=== PATIENT | female | born 1960 | race Caucasian/White ===

== ENCOUNTER 2018-04-27 07:30 | Outpatient (RCR) | payer OTHER, SELFPAY ==
--- NOTE | 2018-04-02 10:40 | PTTR_ITS ---
DATE: 04/02/18 SUBJECTIVE: Brandy states she is nearly 50% improved since starting P.T. Really finds the dry needling to be effective. OBJECTIVE: Today's session consisted of integrated dry needling. She did give verbal consent for the dry needling today. Homeostatic points used: bilateral greater occipital 1, left spinal accessory 1 with muscle twitch achieved. This was applied in prone and in supine positions. Dorsal scapula 1 left, supra scapular 2 left, and greater auricular bilaterally 1/2. Manual therapy: ([id number]). Cervical mobs, up slips, down slopes, lateral glides and MET into rotation left with manual distraction achieving 75 with end range tightness reported. Still no radiculopathy noted. Direct treatment time: 15 min. Total treatment time: 30 min. Plan: Continue as indicated above. MM/gc
--- NOTE | 2018-04-02 16:19 | PTTR_ITS ---
DATE: 04/02/18 CO TREATMENT with supervising Angie, Naif Ramirez. See his note for details OBJECTIVE: Therapeutic procedures ([id number]). Was educated in Phase 1 and 2 cervical stabilization. Specific focus was on maintaining scapular retraction with slight cervical retraction with each of these exercises. Was instructed to use a 1 to 2# weight for weight resisted exercises. Was provided with yellow t-band for t-band resisted external rotation. Verbal and tactile cues were provided throughout today's session for proper positioning and isolation of specific muscles. * x Electrical Stim Unattended - [id number]: applied to the posterior c- spine and upper back soft tissue x15 min. while seated. Direct treatment time: 20 min. Total treatment time: 35 min. SG/gc
--- NOTE | 2018-04-09 13:17 | PTTR_ITS ---
DATE: 04/09/18 SUBJECTIVE: Brandy arrives today indicating she is doing very well. Feels as though her neck is definitely looser and less uncomfortable than it had been prior to starting P.T. Declines the need for modalities. OBJECTIVE: Manual therapy: ([id number]). Cervical mobs were applied consisting of up slips, down slopes, lateral glides as well as METs into rotation. Manual distraction was performed pre and post mobilizations. Did review her HEP consisting of Phase I and II cervical stabilization. Appears to have a very good understanding of each of these exercises, and states that she has been doing them regularly. Direct treatment time: 20 minutes Total treatment time: 20 minutes SG/gc
--- NOTE | 2018-04-20 07:30 | PTTR_ITS ---
DATE: 04/20/18 SUBJECTIVE: Brandy reports that she is having more L sided upper trap and lower cervical spine pain. Admits she was unable to attend PT last week and thinks this may have been why. She has been noticing better function and less pain with dry needling, soft tissue mobilization and cervical mobilization. Reports compliancy with her cervical stabilization, home exercise program. Seen in PT for integrated dry needling as loco expense. She gave verbally consent to receive this today. Homeostatic points used today bilateral greater occipital 1, bilateral greater auricular 1/2, L spinal accessory with muscle twitch elicited, L suprascapular 2, paravertebral points used C4-C7 with 1 bilaterally. Symptomatic points used today were 2 in upper trap muscle belly with muscle fasciculations elicited. . Manual therapy: ([id number]). Cervical mobilizations, upslips, down slopes, lateral glides, hold/relax mobilization into L rotation. AA achieving 75 degrees. Patient then received soft tissue mobilization performed by Demi Mcdonald PTA (see her note) Direct treatment time: 30 mins Total treatment time: 30 mins P: Resume formal PT and work on once a week frequency. MM/dl
--- NOTE | 2018-04-20 08:00 | PTTR_ITS ---
DATE: 04/20/18 Co-treat with supervising PT, Ladarius Ramirez. OBJECTIVE: Manual therapy: ([id number]). Mobilization of cervical soft tissue while in supine position consisting of TPM to upper traps, lev scap and scalenes, with focus on the left. Utilized tendon massage along the cervical vertebrae, upper thoracic vertebrae and medial scap border. Performed OA release, PRT to above indicated muscles and fascial stretching throughout the entire posterior left cervical region. * x Electrical Stim Unattended - [id number]: Ended session with IFC and cryotherapy x 15 minutes at no charge while in seated position. Direct treatment time: 20 minutes Total treatment time: 35 minutes
--- NOTE | 2018-04-27 07:30 | PTTR_ITS ---
DATE: 04/27/18 SUBJECTIVE: Brandy states she had some difficulty over the weekend when she was kayaking with increased L neck pain. Admits that therapy has really helped her sleep through the night better and she is having less pain when she wakes up in the morning. OBJECTIVE: Seen in PT for IDN loco basis. Patient did give verbal consent to receive dry needling today. Homeostatic points used: Bilateral greater occipital 1, L spinal accessory 1 with muscle twitch elicited, greater auricular bilateral 1/2, dorsal scapular L 1, paravertebrals C4-C7 with 2. Manual therapy: (45062a3). Cervical mobilizations, up slips, down slopes, lateral glides, MET's into L rotation achieving 75 degrees compared to 80 to the R. Did perform some L upper trap stretching. Direct treatment time: 30 mins Total treatment time: 30 mins with continued with Laura Thakur PTA (see her note) A: ROM improving with L rotation. P: Continue as above. Will have her take the next couple weeks off as she will be on vacation. Will follow up with her after that and progress to Phase 3 cervical stab MM/dl
--- NOTE | 2018-04-27 11:06 | PTTR_ITS ---
DATE: 04/27/18 Co treatment with TORRI KanT: OBJECTIVE: Manual therapy: ([id number]). STM t/o cervical region with focus on left paraspinals, upper trap, scalenes, using PRT's. CFM over suboccipitals, and attachments of upper trap. Declined MHP post session. Direct treatment time: 20 min Total treatment time: 20 min
== END 2018-05-01 23:59 | disposition home or self-care (01) ==
LOC: PT 07:30
PROVIDERS: PCP Family Medicine; Referring Provider Family Medicine; Visit Provider Family Medicine
DX: M54.2 Cervicalgia (principal); M25.512 Pain in left shoulder; M47.22 Other spondylosis with radiculopathy, cervical region
CPT/HCPCS: 97014; 97110; 97140

== ENCOUNTER 2018-06-12 06:15 | Day surgery (SDC) | payer OTHER, SELFPAY ==
[2018-06-12 06:27] VITALS: BP 124/88; PULSE 66; RESP 18; TEMP 37.1; O2SAT 95
[2018-06-12] MEDS: Lactated Ringers 1,000 ML 80 ML IV (06:50)
[2018-06-12] MEDS: Bupivacaine 0.5% Pres-Free 30 ML VIAL (07:48)
[2018-06-12] MEDS: Dexamethasone 4 MG/ML VIAL (08:10)
--- NOTE | 2018-06-12 08:13 | W.PM.DSUDISC ---
Discharge Plan Discharge Details Reason For Visit: HAMMER TOES 2 & 5 (L) Attending Provider: Gabriel Bustos Primary Care Provider: Erin Morales Home Meds and New Rx's Prescriptions: No Action aspirin 81 MG tablet,chewable 81 mg PO DAILY RF: 0 wkbbfcdcflap-buvb-cbqhp acid [Centrum Women] 1 EACH tablet 1 ea PO DAILY RF: 0 sumatriptan succinate [Imitrex] 50 MG tablet 1 tab PO PRN PRNQty: 10 RF: 12 acyclovir 400 MG tablet 400 mg PO BID PRN Qty: 10 RF: 4 meloxicam [Mobic] 7.5 MG tablet 7.5 mg PO DAILY Qty: 90 RF: 3 conj estrog-medroxyprogest iva [Prempro] 1 EACH tablet 1 tab-cap PO DAILY Qty: 90 RF: 3 latanoprost [Xalatan] 2.5 ML drops 1 drp ophthalmic (eye) DAILY RF: 0
--- NOTE | 2018-06-12 08:20 | PDOC.DSDIS_ITS ---
Discharge Plan Discharge Details Reason For Visit: HAMMER TOES 2 & 5 (L) Attending Provider: Gabriel Bustos Primary Care Provider: Erin Morales Home Meds and New Rx's Prescriptions: No Action aspirin 81 MG tablet,chewable 81 mg PO DAILY RF: 0 nypbghhpftlh-pdgn-ndrri acid [Centrum Women] 1 EACH tablet 1 ea PO DAILY RF: 0 sumatriptan succinate [Imitrex] 50 MG tablet 1 tab PO PRN PRNQty: 10 RF: 12 acyclovir 400 MG tablet 400 mg PO BID PRN Qty: 10 RF: 4 meloxicam [Mobic] 7.5 MG tablet 7.5 mg PO DAILY Qty: 90 RF: 3 conj estrog-medroxyprogest iva [Prempro] 1 EACH tablet 1 tab-cap PO DAILY Qty: 90 RF: 3 latanoprost [Xalatan] 2.5 ML drops 1 drp ophthalmic (eye) DAILY RF: 0
[2018-06-12 08:50] VITALS: BP 127/81; PULSE 66; RESP 16; TEMP 36.6; O2SAT 98
--- NOTE | 2018-06-12 09:43 | ROE_ITS ---
DATE OF PROCEDURE: June 12, 2018 PREOPERATIVE DIAGNOSIS: Hammertoe deformities left second and fifth toes. POSTOPERATIVE DIAGNOSIS: Same. PROCEDURE: 1. Arthroplasty with .062 K-wire fixation left second toe. 2. Flexor tenotomy of the left fifth toe. SURGEON: Gabriel Bustos D.P.M. ANESTHESIA: Monitored Anesthesia Care; local block of the second and fifth digits utilizing a total of 10 cc's of a 60% 1% Lidocaine plain and 40%0.25% Marcaine plain mixture. ANESTHESIA PROVIDER: Atul Hahn CRNA OPERATIVE INDICATIONS: 58-year-old female with increasing pain associated with hammertoe deformities affecting the left second and fifth toes, interfering with comfortable shoe gear and ambulation. Sh e understands the risks and complications of surgery pertaining to pain, scarring, infection, stiffne ss of the joints, and recurrence of contracture potentially requiring revisional procedures. Informe d consent has been obtained. No promises made to final outcome of surgery. REPORT OF OPERATION: Brandy was brought to the operative suite and placed in the supine position whe re the left foot is prepped and draped in the usual sterile podiatric fashion. A time-out was perfor med in the normal hospital protocol. Attention was now directed to the left foot, which was exsanguinated and a well-padded ankle tourniqu et inflated 250 mmHg. Attention was directed to the second two where two converging semi-elliptical incisions were placed dorsally at the PIPJ level. A skin wedge was removed. Soft tissue mobilizatio n was performed. A transverse tenotomy capsulotomy was performed at the PIPJ level with a #15 scalpe l. Medial and lateral collaterals were released. The head of the proximal phalanx was delivered int o the wound and resected at its surgical neck. All rough and bony edges were rasped smooth. The sec ond toe was noted to be in a relaxed position. The toe was fixated in retrograde fashion with a .062 K-wire. The wound was copiously irrigated. The extensor tendon was shortened and repaired end-to-e nd with two simple interrupted sutures of #3-0 Vicryl. The skin was then coapted with a simple inter rupted suture of #4-0 nylon. Attention was now directed to the fifth toe. Flexible contracture was appreciated, creating a digiti quinti varus deformity. Utilizing a #15 scalpel an incision was made at the plantar slightly latera l aspect of the toe at the flexor set level. The blade was advanced. The flexor tendon was identifi ed and subsequently severed. The fifth toe resumed a relaxed rectus position. Irrigation was perfor med. The incision was closed with #4-0 nylon. Xeroform gauze fluff compression dressings were appli ed and the tourniquet was released at 17 minutes with vascularity returning to all toes. Brandy left the OR with vital signs stable. Sharp and sponge counts were correct. Vascular status was intact. She will be followed by me in the office next week. cc: Erin Morales M.D.
== END 2018-06-12 09:15 | disposition home or self-care (01) ==
PROVIDERS: PCP Family Medicine; Visit Provider Podiatrist
PROC: (CPT 28285; principal; 2018-06-12 07:30)
DX: M20.42 Other hammer toe(s) (acquired), left foot (principal)
CPT/HCPCS: 28285 ×2; J0690; J1100

== ENCOUNTER 2019-04-27 01:28 | Outpatient (CLI) | payer OTHER, SELFPAY ==
--- NOTE | 2019-05-17 10:59 | ZIOP_ITS ---
DATE OF DICTATION: May 17, 2019 STUDY INDICATION: Paroxysmal atrial fibrillation. REQUESTING PROVIDER: Mini Hung M.D. FINDINGS: The patient was monitored for 12 days and 13 hours. The patient was in atrial fibrillation throughout. Average heart rate in atrial fibrillation 97 bpm, range 50 to 255 bpm. There was rare ventricular ectopy. There were no pauses greater than 3 seconds. There was no high-degree heart block. There were 11 patient events. All events correlated with atrial fibrillation with heart rates betwee n 70 and 182 bpm. FINAL INTERPRETATION: Atrial fibrillation with overall controlled ventricular response, symptomatic.
== END 2019-04-27 01:48 ==
PROVIDERS: PCP Family Medicine; Visit Provider Nurse Practitioner Family
DX: I48.0 Paroxysmal atrial fibrillation (principal)
CPT/HCPCS: 0296T

== ENCOUNTER 2019-04-28 02:42 | Outpatient (CLI) | payer OTHER, SELFPAY ==
[2019-04-28 11:52] LABS: Hemoglobin A1C 5.5 % (4.5-6.2)
[2019-04-28 12:30] LABS: ALT 36 U/L (14-59); AST 25 U/L (15-37); Albumin 3.6 g/dL (3.4-5.0); Alkaline Phosphatase 65 U/L (46-116); BUN 12 mg/dL (7-18); Bilirubin, Total 0.3 mg/dL (0.2-1.0); CREATININE 0.67 mg/dL (0.55-1.02); Calculated LDL 92 mg/dL; Chloride 104 mmol/L (98-107); Cholesterol 163 mg/dL (50-200); Glucose 91 mg/dL (70-100); HDL Cholesterol 57 mg/dL (40-60); Potassium 4.6 mmol/L (3.5-5.1); Sodium 141 mmol/L (136-145); TSH 1.19 uIU/mL (0.36-3.74); Total Protein 7.4 g/dL (6.4-8.2); Triglyceride 71 mg/dL (30-150)
[2019-04-28 12:52] LABS: FREE T4 1.01 ng/dL (0.76-1.46)
== END 2019-04-28 03:02 ==
PROVIDERS: PCP Family Medicine; Visit Provider Nurse Practitioner Family
DX: I48.0 Paroxysmal atrial fibrillation (principal)
CPT/HCPCS: 36415; 80053; 80061; 83721; 83036; 84439; 84443

== ENCOUNTER 2019-06-24 09:04 | Day surgery (SDC) | payer OTHER, SELFPAY ==
[2019-06-24 09:23] VITALS: BP 133/80; PULSE 89; RESP 14; TEMP 36.3; O2SAT 99
[2019-06-24] MEDS: Lactated Ringers 1,000 ML 80 ML IV (09:33)
--- NOTE | 2019-06-24 10:50 | W.COLOREPORT ---
Date of service: 06/24/19 Time of Service: 10:50 Colonoscopy Report Date of procedure: 06/24/19 Pre-op diagnosis general: Screening Post-op diagnosis procedure note: other (Incomplete) Procedure: Sigmoidoscopy Surgeon: Erika Arce Anesthesia proc note operative: GETA Estimated blood loss (mL): 0 Pathology: none sent Procedure Description: After informed consent was obtained the patient was taken to the procedure room and placed in a left decubitous position. Monitors were applied and a time out was done. The patients name, date of , procedure, allergies to medications and metal in their body was reviewed. The patient was then sedated. Once sedated and comfortable a rectal exam was done. External exam was normal. Internal exam revealed a normal sphincter tone and no palpable masses. The scope was then introduced and retrofelexed. No internal hemorrhoids were identified. The scope was then advanced to the 30cm. Could not complete turn. Mult positions were tried- but could not pass scope. Patient will be sent for barium enema. The patient tolerated the procedure well and there were no immediate complications.
--- NOTE | 2019-06-24 11:15 | W.PM.DSUDISC ---
Discharge Plan Disposition Patient Disposition: HOME Condition: Good Discharge Details Reason For Visit: colon scope Attending Provider: Erika Arce Primary Care Provider: Erin Morales Home Meds and New Rx's Prescriptions: Continued aspirin 81 MG tablet,chewable 81 mg PO DAILY RF: 0 Centrum Women 1 EACH tablet 1 ea PO DAILY RF: 0 sumatriptan succinate [Imitrex] 50 MG tablet 1 tab PO PRN PRNQty: 10 RF: 12 acyclovir 400 MG tablet 400 mg PO BID PRN Qty: 10 RF: 4 Prempro 0.625-2.5 mg tablet 1 tab PO DAILY Qty: 90 RF: 3 meloxicam [Mobic] 7.5 mg tablet 7.5 mg PO DAILY Qty: 90 RF: 3 latanoprost [Xalatan] 2.5 ML drops 1 drp ophthalmic (eye) DAILY RF: 0 Discharge Instructions Additional Instructions: Findings:incomplete colon scope. barium enema in am- arrive in radiology: 8:15am Friday for 8:30am procedure clear liquids only today nothing to eat/drink after midnight will call w/ results Please call if you develop: fevers >101.5 Nausea or Vomiting Abdominal pain that is not transient DAY SURGERY UNIT POST COLONOSCOPY INSTRUCTIONS 1. Because there will be medication in your system for the next 24 hours, you may feel a little sleepy. Your coordination will be affected. Therefore: a. Do not drive or operate dangerous equipment for 24 hours. b. Do not drink alcohol beverages for 24 hours (not even beer). c. Plan to go home and rest for the day. 2. Generally there are no restrictions on your activity after a day or so has gone by, but you may feel a bit fatigued for a few days. 3 After you arrive home you may have a light meal and return to a normal diet as you can tolerate it without feeling sick to your stomach. 4. After surgery, you may feel pain or discomfort. This should be only transient, but if it persists please contact your doctor. 5. If there are any questions regarding the findings of your procedure, please feel free to contact your doctor. 6. If you are unable to contact your doctor with a problem, contact the hospital at [phone]. 7. Continue all your regular medications unless directed otherwise. I understand the above instructions and have no questions. Signature of Patient or Responsible Adult Escort Date/Time Name of Responsible Adult Escort Signature of Nurse Date/Time Discharge Orders Discharge Orders: Discharge Order (Routine); Ordered 06/24/19 Ordered By: Erika Arce DS: Diagnosis Discharge Diagnosis (1) Colon cancer screening: Status: Acute
[2019-06-24 11:50] VITALS: BP 132/96; PULSE 80; RESP 16; TEMP 35.7; O2SAT 99
== END 2019-06-24 12:15 | disposition home or self-care (01) ==
PROVIDERS: PCP Family Medicine; Visit Provider Surgery
PROC: 0DJD8ZZ Inspection of Lower Intestinal Tract, Via Natural or Artificial Opening Endoscopic (ICD-10-PCS; CPT 45378; principal; 2019-06-24 10:15)
DX: Z12.11 Encounter for screening for malignant neoplasm of colon (principal); Y66 Nonadministration of surgical and medical care; Z53.09 Procedure and treatment not carried out because of other contraindication
CPT/HCPCS: 45378

== ENCOUNTER 2019-06-25 09:28 | Outpatient (CLI) | payer OTHER, SELFPAY ==
--- NOTE | 2019-06-25 08:30 | DI.RAD_ITS ---
EXAM: RF BARIUM ENEMA CLINICAL HISTORY: incomplete colonoscopy,colon cancer screening,z12.11 COMPARISON: No exams were available for comparison FINDINGS: Barium was introduced in the rectum and flowed to the cecum and into the terminal small bowel. Sigmo id colon is markedly tortuous and portions of the sigmoid are nonvisualized due to the tortuosity wit h multiple overlapping loops of bowel. Remainder of the colon is fairly well visualized. No gross m ucosal lesion or filling defect identified. Mild colonic diverticulosis noted. Unremarkable appeara nce of the terminal ileum. IMPRESSION: Mild colonic diverticulosis. No significant lesion seen. Incomplete evaluation of the sigmoid colon d ue to multiple overlapping loops of bowel. No fluoro time.
== END 2019-06-25 09:48 ==
PROVIDERS: PCP Family Medicine; Visit Provider Surgery
DX: Z12.11 Encounter for screening for malignant neoplasm of colon (principal); K57.30 Diverticulosis of large intestine without perforation or abscess without bleeding; R14.0 Abdominal distension (gaseous)
CPT/HCPCS: 74270

== ENCOUNTER 2019-09-05 13:58 | Emergency (ER) | payer OTHER, SELFPAY ==
[2019-09-05 14:03] VITALS: BP 158/127; PULSE 103; RESP 18; TEMP 36.5; O2SAT 99
--- NOTE | 2019-09-05 14:42 | ED.GENADUL_ITS ---
Discharge Plan Disposition Patient Disposition: HOME Discharge Details Chief Complaint: Chest/Rib Clinical Impression: Injury of trunk, Fall Primary Care Provider: Erin Morales ED Provider: Kris Morris Home Meds and New Rx's Prescriptions: New oxycodone 5 mg capsule 5 mg PO QID PRN (Reason: pain) Qty: 7 RF: 0 No Action aspirin 81 MG tablet,chewable 81 mg PO DAILY RF: 0 Centrum Women 1 EACH tablet 1 ea PO DAILY RF: 0 sumatriptan succinate [Imitrex] 50 MG tablet 1 tab PO PRN PRNQty: 10 RF: 12 acyclovir 400 MG tablet 400 mg PO BID PRN Qty: 10 RF: 4 meloxicam [Mobic] 7.5 mg tablet 7.5 mg PO DAILY Qty: 90 RF: 3 venlafaxine 75 mg tablet extended release 24 hr 75 mg PO DAILY Qty: 90 RF: 4 latanoprost [Xalatan] 2.5 ML drops 1 drp ophthalmic (eye) DAILY RF: 0 Discharge Instructions Instructions: Rib Contusion (ED) Additional Instructions: Your x-rays were negative for acute fracture of the ribs, however often small nondisplaced rib fractures are missed on x-ray. It is very important that you work on deep breathing exercises and avoid laboring your breathing. Should you develop severe shortness of breath, fever or severe pain radiating to your abdomen you need to be reevaluated. Take Tylenol 500 m tabs every 8 hours as needed for pain. You can also take ibuprofen 200 m tabs every 6-8 hours as needed for pain. Referrals: Erin Morales MD [Primary Care Provider] - 2 weeks Medical Decision Making This is a nontoxic-appearing 59-year-old female presenting to the emergency department with localized inferior posterior lateral rib pain status post fall. Hemodynamically stable. Physical exam significant for focal tenderness over the area. No crepitus. No flail chest. X-rays negative for pneumothorax or obvious acute rib fracture. Discussed the nature of her injury and the imp ortance of deep breathing exercises. Will send home with pain medication along with return precautions. HPI General Date/Time Provider Initiated Documentation: 09/05/19 14:15 . HPI Narrative: Patient is a 59-year-old female with no significant past medical history presents to the emergency department with severe left posterior lateral rib pain status post fall. She states that she was walking downstairs and slipped striking her lower back on the bridge of the stair. She has had severe pain since the fall. She denies any shortness of breath, however admits to pain with deep breathing. No abdominal pain. No numbness or tingling radiating down her legs. She takes no blood thinning meds. Related Data Home Medications Medication Instructions Recorded Confirmed latanoprost [Xalatan] 1 drp OPHTHALMIC (EYE) DAILY 05/23/16 09/05/19 aspirin 81 mg PO DAILY tab-cap 01/14/17 09/05/19 Centrum Women 1 ea PO DAILY 01/19/18 09/05/19 acyclovir 400 mg PO BID PRN #10 tab-cap 01/19/18 09/05/19 sumatriptan succinate [Imitrex] 1 tab PO PRN PRN #10 tab-cap 01/19/18 09/05/19 meloxicam 7.5 mg tablet 7.5 mg PO DAILY #90 tab-cap 03/05/19 09/05/19 venlafaxine 75 mg tablet,extended 75 mg PO DAILY #90 tab 07/23/19 09/05/19 release 24 hr oxycodone 5 mg PO QID PRN #7 cap 09/05/19 Previous Rx's Medication Instructions Recorded acyclovir 400 mg PO BID PRN #10 tab-cap 01/19/18 meloxicam 7.5 mg tablet 7.5 mg PO DAILY #90 tab-cap 03/05/19 venlafaxine 75 mg tablet,extended 75 mg PO DAILY #90 tab 07/23/19 release 24 hr oxycodone 5 mg PO QID PRN #7 cap 09/05/19 Allergies Allergy/AdvReac Type Severity Reaction Status Date / Time erythromycin base AdvReac NAUSEA/VOMT Verified 08/13/19 13:42 ING hydrocodone bitartrate AdvReac Itch Verified 08/13/19 13:42 [From Vicodin] General Stated Complaint: Chest/Rib JONATHAN: 4 Review of Systems Constitutional Constitutional: Denies frequent falls and Denies headache(s) ENT Ears, Nose, Mouth, and Throat: Denies headache(s) and Denies neck pain Cardiovascular Cardiovascular: Denies syncope, Denies edema, Denies claudication and Denies dyspnea Respiratory Respiratory: Denies cough, Denies hemoptysis, Reports pain on inspiration, Reports pain with cough and Denies dyspnea Gastrointestinal Gastrointestinal: Denies abdominal pain, Denies nausea and Denies vomiting Musculoskeletal Musculoskeletal: Reports back pain, Denies neck pain and Denies numbness Neurologic Neurologic: Denies syncope, Denies frequent falls, Denies headache(s), Denies numbness and Denies paresthesias [facility] Medical History Atrial fibrillation (Chronic) Was paroxysmal but now in chronic Afib. Not anticoagulated. 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) Followed by [facility] Vasomotor symptoms due to menopause (Chronic) Surgical History Hx of sigmoidoscopy (Acute 06/24/19) S/P appendectomy (Acute ~2004) S/P bunionectomy (Acute) Left great toe S/P cholecystectomy (Acute) S/P hammer toe correction (Acute) Status post bilateral breast reduction (Acute 11/03/17) Status post right hip replacement (Acute 08/10/13) Family History Mother Colon cancer Father Heart disease ICD/PPM Hypertension Myocardial infarction Brother Hyperlipidemia Hypertension Stroke Brother Hyperlipidemia Hypertension Brother Heart disease Substance abuse Daughter Hypertension Daughter No problems noted. Maternal Grandfather Parkinson disease Colon cancer Maternal Grandmother Stroke Paternal Grandfather Heart disease Paternal Grandmother Type 2 diabetes mellitus Social History Smoking/Tobacco Use Status: Never Alcohol Intake: current Alcohol Intake frequency: a few times a month Drug use: Never Substance use type: does not use Details: Jun 20 1 glass of red wine Caregiver/Support person: No Household members: spouse Housing: house Pets and animals: Yes Pets and animals: cat(s) Sexually active: Yes Do you think of yourself as: straight/heterosexual Current gender identity: female and decline to answer What is your relationship status?: How often do you talk on the phone with friends or family?: decline to answer How often do you get together with friends or relatives?: decline to answer How often do you attend restorationist or jehovah's witness services?: decline to answer Do you belong to any clubs or organized social groups?: decline to answer Panel score (0-1 are the most socially isolated patients): 1 What type of physical activity do you participate in: walking, aerobic, resista nce training, other Details: Pilates and yoga Duration: 30-45 minutes/day Frequency: 5-6 times per week Anaya/Pentecostalism: Yarsani Special anaya needs: No Seatbelt use: always Drive intox or ride w/intox batch mixing truck driver: No Do you feel safe at home: Yes Do you feel safe in your relationship?: Yes Female Reproductive History Menstrual Menopause type: natural History History 2 Para 2 Hx # Term Pregnancies Multiple births Hx # Pregnancies Ectopic pregnancies AB induced Hx Number of Living Children 2 AB spontaneous Exam Const General: cooperative, comfortable and in distress mild Orientation: alert, awake and oriented x3 HENMT Head: normal to inspection, no palpable skull fracture, normocephalic and atraumatic General nose exam: external nose normal Face and sinus: normal facial exam Mouth: oral mucosae normal Eyes General: appearance normal, both eyes and all related structures Pupils: PERRL EOM: EOM intact bilaterally Neck Neck: normal visual inspection and full ROM Chest Chest: normal inspection of the chest, localized rib tenderness with anteroposterior compression (Inferior posterior lateral) and tenderness rib (Inferior posterior lateral) Resp Effort & Inspection: normal respiratory effort and able to speak in complete sentences Auscultation: clear to auscultation bilaterally Cardio Palpation: normal PMI Rate: regular rate Rhythm: regular rhythm Pulses: normal peripheral pulses Back/Spine/Pelvis Back: no CVA tenderness Course Vital Signs Vital signs: Vital Signs Temperature 36.5 C 09/05/19 14:03 Pulse 103 H 09/05/19 14:03 Respiratory Rate 18 09/05/19 14:03 Blood Pressure 158/127 H 09/05/19 14:03 Pulse Oximetry 99 09/05/19 14:03 Temperature 36.5 C 09/05/19 14:03 Temperature Source Skin 09/05/19 14:03 Pulse 103 H 09/05/19 14:03 Respiratory Rate 18 09/05/19 14:03 Respiratory Effort Non-Labored 09/05/19 14:09 Respiratory Depth Normal 09/05/19 14:09 Respiratory Pattern Normal 09/05/19 14:09 Blood Pressure 158/127 H 09/05/19 14:03 Blood Pressure Position Sitting 09/05/19 14:03 Pulse Oximetry 99 09/05/19 14:03 Oxygen Delivery Method Room Air 09/05/19 14:03 Oxygen Flow Rate 0 09/05/19 14:03 Pain Level 9 09/05/19 14:09
--- NOTE | 2019-09-05 14:50 | DI.RAD_ITS ---
EXAM: XR RIBS LT W PA LAT CHEST INDICATION: Left lower/posterior rib pain. COMPARISON: No exams were available for comparison TECHNIQUE: 2D digital imaging was performed. FINDINGS: Heart size is normal. The aorta is tortuous. The lungs appear clear. No pneumothorax, infiltrate o r effusion is seen. Two views of the ribs show no evidence of fracture. The left shoulder and thora cic spine are unremarkable. IMPRESSION: Negative chest and left ribs.
[2019-09-05] MEDS: oxyCODONE 5 MG TAB PO (14:52)
[2019-09-05] MEDS: Ondansetron O.D.T. 4 MG TABEF (15:03)
--- NOTE | 2019-09-05 15:46 | DI.VRAD_ITS ---
PROCEDURE INFORMATION: Exam: XR Left Ribs Exam date and time: 09/05/2019 2:49 PM Age: 59 years old Clinical indication: Left-sided chest pain; Chest wall pain; Patient HX: Left lower posterior rib pain, fell down stairs today. TECHNIQUE: Imaging protocol: XR Left ribs. Views: 2 views. COMPARISON: No relevant prior studies available. FINDINGS: Bones/joints: No fracture identified Soft tissues: Normal. IMPRESSION: No acute findings. PROCEDURE INFORMATION: Exam: XR Chest, 2 Views Exam date and time: 09/05/2019 2:49 PM Age: 59 years old Clinical indication: Left-sided chest pain; Chest wall pain; Patient HX: Left lower posterior rib pain, fell down stairs today. TECHNIQUE: Imaging protocol: XR of the chest Views: 2 views. COMPARISON: No relevant prior studies available. FINDINGS: Lungs: Unremarkable. No consolidation. Pleural space: Unremarkable. No pleural effusion. No pneumothorax. Heart/Mediastinum: Unremarkable. No cardiomegaly. Vasculature: Tortuous aorta Bones/joints: Unremarkable. IMPRESSION: No acute process Dictated and Authenticated by: Neto Jesus MD. Ordering:PRAFUL Ponce MD
[2019-09-05 16:25] VITALS: BP 158/127; PULSE 103; RESP 18; TEMP 36.5; O2SAT 99
== END 2019-09-05 16:25 | disposition home or self-care (01) ==
PROVIDERS: Emergency Provider Physician Assistant; PCP Family Medicine
DX: S29.8XXA Other specified injuries of thorax, initial encounter (principal); W10.8XXA Fall (on) (from) other stairs and steps, initial encounter
CPT/HCPCS: 99284; 71046; 71100; 99283

== ENCOUNTER 2019-09-22 08:52 | Outpatient (CLI) | payer OTHER, SELFPAY ==
--- NOTE | 2019-09-22 08:30 | DI.RAD_ITS ---
EXAM: XR WRIST LT COMPLETE CLINICAL HISTORY: wrist ganglion. TECHNIQUE: 2D digital imaging was performed. COMPARISON: No exams were available for comparison FINDINGS: BONES: No acute fracture is present. No bony destructive lesion is seen. JOINTS: The carpal bones are normally aligned. SOFT TISSUE: Normal. IMPRESSION: Unremarkable radiographs of the left wrist.
== END 2019-09-22 09:12 ==
PROVIDERS: PCP Family Medicine; Visit Provider Student in an Organized Health Care Education/Training Program
DX: M67.432 Ganglion, left wrist (principal)
CPT/HCPCS: 73110

== ENCOUNTER 2019-10-04 01:40 | Outpatient (CLI) | payer OTHER, SELFPAY ==
--- NOTE | 2019-10-04 08:58 | DI.MRI_ITS ---
EXAM: MR UPPER JOINT LT WO CLINICAL HISTORY: Left wrist cyst ganglion versus aneurysm, ganglion lt wrist, M67.432. TECHNIQUE: Multiplanar multisequence MRI was performed. COMPARISON: XR WRIST LT COMPLETE from 09/22/2019 FINDINGS: Bones: There are mild degenerative signal changes seen at the 1st carpometacarpal joint. The marrow signal is otherwise within normal limits. No evidence of an occult fracture or avascular necrosis is present. Tendons: Unremarkable. Ligaments: No acute abnormality. Soft tissues: There is a multi-septated fluid signal lesion at the radial aspect of the wrist. It is interposed between the pollicis tendons and the radial vessels. It measures 3.3 cm in length by 1.9 cm AP by 1.1 cm transverse. This likely reflects a ganglion cyst. No solid component is identified . There does appear to be a tiny ganglion at the triquetral pisiform joint. Muscles: Unremarkable. IMPRESSION: 0.3 x 1.9 x 1.1 cm cystic lesion at the radial aspect of the wrist likely reflecting a ganglion cyst. A postcontrast MRI may be considered for further evaluation.
== END 2019-10-04 02:00 ==
PROVIDERS: PCP Family Medicine; Visit Provider Student in an Organized Health Care Education/Training Program
DX: M67.432 Ganglion, left wrist (principal); M18.12 Unilateral primary osteoarthritis of first carpometacarpal joint, left hand
CPT/HCPCS: 73221

== ENCOUNTER 2019-11-09 08:23 | Day surgery (SDC) | payer OTHER, SELFPAY ==
[2019-11-09 08:44] VITALS: BP 128/85; PULSE 85; RESP 16; TEMP 36.5; O2SAT 96
[2019-11-09] MEDS: Lactated Ringers 1,000 ML 80 ML IV (09:05)
[2019-11-09] MEDS: ceFAZolin 2 GM/50 ML BAG IVPB (10:01)
--- NOTE | 2019-11-09 10:02 | W.PM.DSUDISC ---
Discharge Plan Disposition Patient Disposition: HOME Condition: Good Discharge Details Reason For Visit: Left Wrist Cyst Excision Attending Provider: Da Soares Primary Care Provider: Erin Morales Home Meds and New Rx's Prescriptions: New acetaminophen 500 mg tablet 1,000 mg PO Q8H PRN (Reason: pain) Qty: 60 RF: 3 Continued hydrochlorothiazide 25 mg tablet 25 mg PO QAM Qty: 90 RF: 3 acyclovir 400 mg tablet 400 mg PO BID PRN Qty: 30 RF: 4 sumatriptan succinate [Imitrex] 50 mg tablet 50 mg PO PRN PRN (Reason: migraine headache) Qty: 10 RF: 4 aspirin 81 MG tablet,chewable 81 mg PO DAILY RF: 0 Centrum Women 1 EACH tablet 1 ea PO DAILY RF: 0 conj estrog-medroxyprogest iva 0.625-2.5 mg tablet 1 tab PO DAILY Qty: 90 RF: 1 latanoprost [Xalatan] 2.5 ML drops 1 drp ophthalmic (eye) DAILY RF: 0 Changed meloxicam [Mobic] 7.5 mg tablet 7.5 mg PO BID PRN PRNQty: 90 RF: 3 Discharge Instructions Additional Instructions: Activity: You may use your fingers for light activity. You should limit any excessive motion or forceful gripping for the first few weeks. You should wear the brace for support with any repetitive or heavy activities. Dressings: You should keep the initial surgical dressing in place for at least 2-3 days. You may remove your dressings and get the wound wet after 3 days. You should keep the dressings and the wound clean at all times. All of your sutures are buried in the skin. He can keep the wound covered with a light piece of gauze or Band-Aid until your follow-up. Medications: - You should take Tylenol (up to 1000 mg every 8 hours as needed ) and Meloxicam (7.5mg twice a day) around the clock as prescribed or per [employer]'s recommendations. Follow-up: 7-10 days for wound check and suture removal. Equipment/Supplies: Brace Activity:: Elevate Remove Dressings/Wound Care:: 48 hours Shower/Bathe:: 48 hours Diet:: As Tolerated Discharge Orders Discharge Orders: Discharge Order (Routine); Ordered 11/09/19 Ordered By: Da Soares DS: Diagnosis Discharge Diagnosis (1) Ganglion, left wrist: Status: Acute
[2019-11-09] MEDS: Sodium Bicarbonate 50 MEQ/50 ML VIAL (10:27)
[2019-11-09 11:30] VITALS: BP 114/74; PULSE 70; RESP 18; TEMP 36.2; O2SAT 100
--- NOTE | 2019-11-09 21:53 | W.PM.OP ---
Date of service: 11/09/19 Time of Service: 08:53 Operative Note Operative Note DATE OF PROCEDURE: 11/09/19 PRE-OP DIAGNOSIS: Left volar Wrist Ganglion Cyst POST-OP DIAGNOSIS: same PROCEDURE: Excision of volar wrist ganglion cyst - Left wrist SURGEON: Da Soares ANESTHESIA: MAC ESTIMATED BLOOD LOSS: 0 PATHOLOGY: none sent TOURNIQUET TIME: 16 COMPLICATIONS: None Patient was transported to: PACU Patient's condition: stable Indications: Brandy is a 59yo female who I have seen for a volar wrist ganglion cyst. It has continued to be bothersome despite some conservative options. Its size and interference with activities continues to cause problems. Therefore, I offered excision of the volar wrist cyst. I discussed the risks to include bleeding, infection, pain, stiffness, damage to nerve and vessels, recurrence. Despite these risks, she elects to proceed. Findings: There is no notable cyst. There was a significant amount of fibrofatty and inflammatory tissue which could represent previous cyst rupture in the area of the mass felt by the patient. This tissue was resected and traced down all the way to the radioscaphoid joint. Procedure Description: Brandy was greeted in the preoperative holding area. Identity was confirmed and the correct site was identified and marked. Consent was reviewed the patient and signed. History and physical was updated. The patient to take not to the operating room placed in supine position. All bony prominences were well-padded. A nonsterile tourniquet was placed high up onto the left arm. The arms and prepped with ChloraPrep and draped in a standard fashion. The surgical site was marked on the skin and injected with 1% lidocaine with epinephrine buffered with sodium bicarbonate. The limb was exsanguinated and the tourniquet was inflated to 250 mmHg where it stayed for 16 minutes. The skin was incised sharply. Deeper dissection was carried out with tenotomy scissors and careful attention to vascular branches in this area. There is no noticeable cyst. In the level of the cyst and where the patient felt the mass there was a significant of fibrofatty tissue which had some inflammatory changes to it. This was dissected away from the radial artery and the deeper structures and this tissue was resected. Once again, I did not find any cystic structure. This was followed down all the way to the carpus. The wound was then thoroughly irrigated. The tourniquet was deflated. There is no major arterial bleeding in any other persistent ooze was cauterized with the bipolar electrocautery. The wound was dry. The deep layer was reapproximated with a 3-0 Vicryl. The skin was closed with a running 4-0 Monocryl followed by skin glue, gauze, and Tab wrap. The wrist was placed into a removable wrist brace. At the end the case all counts were correct. The patient was awakened from anesthesia and taken to the PACU in stable condition. There were no noted complications.
--- NOTE | 2019-11-09 22:39 | W.PM.OP ---
Date of service: 11/09/19 Time of Service: 14:39 Operative Note Operative Note DATE OF PROCEDURE: 11/09/19 PRE-OP DIAGNOSIS: Left volar Wrist Ganglion Cyst POST-OP DIAGNOSIS: same PROCEDURE: Excision of volar wrist ganglion cyst - Left wrist SURGEON: Da Soares ANESTHESIA: MAC ESTIMATED BLOOD LOSS: 0 PATHOLOGY: none sent TOURNIQUET TIME: 15 COMPLICATIONS: None Patient was transported to: PACU Patient's condition: stable Implants: Excision of volar wrist ganglion cyst - Left wrist Indications: Brandy is a 59yo female who I have seen for a volar wrist ganglion cyst. It has continued to be bothersome despite some conservative options. Its size and interference with activities continues to cause problems. Therefore, I offered excision of the volar wrist cyst. I discussed the risks to include bleeding, infection, pain, stiffness, damage to nerve and vessels, recurrence. Despite these risks, she elects to proceed. Procedure Description: Brandy was greeted in the preoperative holding area. Identity was confirmed and the correct site was identified and marked. Consent was reviewed the patient and signed. History and physical was updated. The patient to take not to the operating room placed in supine position. All bony prominences were well-padded. A nonsterile tourniquet was placed high up onto the left arm. The arms and prepped with ChloraPrep and draped in a standard fashion. The surgical site was marked on the skin and injected with 1% lidocaine with epinephrine buffered with sodium bicarbonate. The limb was exsanguinated and the tourniquet was inflated to 250 mmHg where it stayed for min minutes. The skin was incised sharply. Deeper dissection was carried out with tenotomy scissors and careful attention to vascular branches in this area. The mass was identified and protected with dissection carried around. Once was fully identified it was deflated and the cyst stalk was followed down to the carpus. The cyst structure was resected and its origin from the carpus was opened with tenotomy scissors and rongeur. The wound was then thoroughly irrigated. The tourniquet was deflated. There is no major arterial bleeding in any other persistent ooze was cauterized with the bipolar electrocautery. The wound was dry. The deep layer was reapproximated with a 3-0 Vicryl. The skin was closed with a running 4-0 Monocryl followed by skin glue, gauze, and Tab wrap. The wrist was placed into a removable wrist brace. At the end the case all counts were correct. The patient was awakened from anesthesia and taken to the PACU in stable condition. There were no noted complications.
== END 2019-11-09 11:45 | disposition home or self-care (01) ==
PROVIDERS: PCP Family Medicine; Visit Provider Student in an Organized Health Care Education/Training Program
PROC: (CPT 25111; principal; 2019-11-09 10:15)
DX: M67.432 Ganglion, left wrist (principal)
CPT/HCPCS: 25111; J0690; J1885; J2250; L3908

== ENCOUNTER 2020-01-21 03:51 | Outpatient (CLI) | payer OTHER, SELFPAY ==
[2020-01-21 07:28] LABS: HCT 42.5 % (36.0-46.0); HGB 14.5 g/dL (12.0-15.5); Mean Corp. HGB Concentration 34.1 g/dL (32.0-36.0); Mean Corpuscular Hemoglobin 30.2 pg (27.0-33.0); Mean Corpuscular Volume 88.5 fL (80-95); Mean Platelet Volume 11.2 fL (8.0-11.0); Platelet Count 313 x1000/uL (130-400); RBC Distribution Width 13.1 % (11.7-14.6); White Blood Cell Count 7.18 k/cumm (4.4-10.8)
[2020-01-21 08:18] LABS: ALT 34 U/L (14-59); AST 27 U/L (15-37); Alkaline Phosphatase 67 U/L (46-116); Anion Gap 7.9 mmol/L (3-11); BUN 13 mg/dL (7-18); Bilirubin, Total 0.5 mg/dL (0.2-1.0); CO2 31.1 mmol/L (21.0-32.0); CREATININE 0.82 mg/dL (0.55-1.02); Calcium 9.3 mg/dL (8.5-10.1); Calculated LDL 103 mg/dL (<100); Chloride 95 mmol/L (98-107); Cholesterol 192 mg/dL (<200); Glucose 91 mg/dL (74-106); HDL Cholesterol 78 mg/dL (40-60); Potassium 4.1 mmol/L (3.5-5.1); Sodium 134 mmol/L (136-145); Total Protein 7.5 g/dL (6.4-8.2); Triglyceride 59 mg/dL (<150)
== END 2020-01-21 04:11 ==
PROVIDERS: PCP Family Medicine; Visit Provider Nurse Practitioner Family
DX: I48.91 Unspecified atrial fibrillation (principal)
CPT/HCPCS: 36415; 80053; 80061; 85027

== ENCOUNTER 2020-03-01 02:14 | Outpatient (CLI) | payer OTHER, SELFPAY ==
--- NOTE | 2020-03-01 07:33 | DI.US_ITS ---
APPROVED REPORT EXAM: Comprehensive 2D, Doppler, and color-flow Echocardiogram Patient Location: Out-Patient Bandage Maker: Kate Hutchinson RDCS (AE) Indications: Atrial Fibrillation Other Information Study Quality: Good Conclusion Left Ventricle : The left ventricle is normal size. The left ventricular systolic function is normal. The left ventricular ejection fraction is within the normal range. There is normal left ventricular wall thickness. There is normal LV segmental wall motion. LVEF is 50-55%. Right Ventricle : The right ventricle is normal size. The right ventricular systolic function is norm al. The RVSP is 22.2 mmHg. Atria : Left atrium is mildly dilated. Right atrium is mildly dilated. Aortic Valve : Aortic valve is trileaflet. Aortic valve leaflets are sclerotic but open well. There i s no aortic valvular stenosis. Moderate aortic regurgitation. Mitral Valve : The mitral valve is normal in structure. No evidence of mitral valve stenosis. Trace t o mild mitral regurgitation. Tricuspid Valve : The tricuspid valve is normal in structure. There is no tricuspid valve stenosis. M ild to moderate tricuspid regurgitation. Great Vessels : IVC is normal in size and collapses >50% with inspiration. There is no prior study available for comparison. Wall motion Left Ventricle The left ventricle is normal size. The left ventricular systolic function is normal. The left ventric ular ejection fraction is within the normal range. There is normal left ventricular wall thickness. T here is normal LV segmental wall motion. There is no ventricular septal defect visualized. LVEF is 50 -55%. Right Ventricle The right ventricle is normal size. The right ventricular systolic function is normal. The RVSP is 22 .2 mmHg. Atria Left atrium is mildly dilated. Right atrium is mildly dilated. The interatrial septum is intact with no evidence for an atrial septal defect. Aortic Valve Aortic valve is trileaflet. Aortic valve leaflets are sclerotic but open well. There is no aortic jacklyn vular stenosis. Moderate aortic regurgitation. Mitral Valve The mitral valve is normal in structure. No evidence of mitral valve stenosis. Trace to mild mitral r egurgitation. Tricuspid Valve The tricuspid valve is normal in structure. There is no tricuspid valve stenosis. Mild to moderate tr icuspid regurgitation. Pulmonic Valve The pulmonary valve is normal in structure. There is no pulmonic valvular stenosis. Trace pulmonic re gurgitation. Great Vessels The aortic root is normal in size. The ascending aorta is mildly dilated. Aortic arch is normal in ca liber. IVC is normal in size and collapses >50% with inspiration. Pericardium There is no pericardial effusion. There is no pleural effusion. 2D Dimensions IVSD d PLAX 0.86 cm F: 0.6-1.0 LV Vol A2C d MOD 73.6 mL LVPW d PLAX 0.87 cm F: 0.6 - 1.0 LV Vol A4C d MOD 54.5 mL LVID d PLAX 4.11 cm F: 3.8 - 5.2 LA vol/ BSA A2C s A-L 38.3 mL/m2 LVDs 2.95 cm F: 2.2 - 3.5 LA vol/ BSA A4C s A-L 20.5 mL/m2 Ao Root d 2.70 cm F: 2.7 - 3.3 LA Vol/ BSA Biplane s A-L 28.9 mL/m2 RA Area A4C 18.59 cm2 LA Area A4C s MOD 14.24 cm2 RA Vol/ BSA A4C s A-L 33.4 mL/m2 LA Area A2C s MOD 20.11 cm2 Ao Asc Diam d 3.46 cm F: 2.3 - 3.1 LV EF A4C MOD 51.5 % LV EF Teichholz 54.0 % LV EF A2C MOD 56.0 % LVEF (Hernandez's) 52.64 % F: 54 - 74 LV EF Biplane MOD 52.6 % LV Volume 52.15 mL F: 46 - 106 SV 33.97 mL LV Volume Index 32.19 mL/m2 F: 29 - 61 SV Index 20.93 mL/m2 LV Vol Biplane MOD 64.5 mL FS 27.55 % M-Mode TAPSE 2.21 cm (M/F) >1.7 LV Diastology MV E' medial 0.095 (>0.07 m/s) MV E Vmax 1.00 (0.4-1.3 m/s) LV E/e MED 10.45 (<14) MV E' lateral 0.138 (>0.1 m/s) LV E/e LAT 7.20 (<14) MV E/E' medial 10.46 MV E/E' lateral 7.22 Aortic Valve LVOT Area 3.44 cm2 AoV Area Vmax 2.43 cm2 LVOT Vmax 0.83 m/s AoV Area/ BSA (Vmax) 1.50 cm2/m2 LVOT Mean Serafin. 0.51 m/s CORRINA Mean Serafin. 2.22 cm2 LVOT Peak Grad 2.7 mmHg CORRINA Mean Serafin. Index 1.37 cm2/m2 LVOT Mean Grad 1.3 mmHg AR DT 1870 msec LVOT VTI 0.167 m AR PHT 542 msec LVOT Diam s 2.05 cm AoV Vmax 1.17 m/s Velocity Ratio 0.70 AoV Mean Serafin. 0.79 m/s AoV Peak Grad 5.5 mmHg LVOT SV 57.41 mL AoV Mean Grad 2.8 mmHg AoV VTI 0.219 m AoV Area VTI 2.62 cm2 AoV Area/ BSA (VTI) 1.62 cm/m2 Mitral Valve MV DT 170 (160-240 msec) MR PISA Radius 0.37 cm MV PHT 49 msec MR Aliasing Velocity 0.35 m/s MV Area PHT 4.47 cm2 MR PISA 0.84 cm2 Pulmonary Valve PV Vmax 0.64 (0.5-1.5 m/s) RVOT Peak Gr. 1.12 mmHg PV Peak Grad 1.6 mmHg RVOT Mean Gr. 0.55 mmHg PV Mean Grad 1.0 mmHg RVOT VTI 0.124 m PV VTI 0.125 m RVOT Vmax 0.53 m/s Tricuspid Valve TR Peak Grad 19.1 mmHg TR Vmax 2.19 m/s RA Pressure 3.00 mmHg RVSP (TR) 22.2 mmHg
== END 2020-03-01 02:34 ==
PROVIDERS: PCP Family Medicine; Visit Provider Nurse Practitioner Family
DX: I48.91 Unspecified atrial fibrillation (principal); I35.1 Nonrheumatic aortic (valve) insufficiency; I10 Essential (primary) hypertension
CPT/HCPCS: 93306

== ENCOUNTER 2020-03-02 02:03 | Outpatient (CLI) | payer OTHER, SELFPAY ==
[2020-03-02 09:43] LABS: Anion Gap 9.5 mmol/L (3-11); BUN 14 mg/dL (7-18); CO2 26.5 mmol/L (21.0-32.0); CREATININE 0.78 mg/dL (0.55-1.02); Calcium 9.7 mg/dL (8.5-10.1); Chloride 101 mmol/L (98-107); Glucose 96 mg/dL (74-106); Potassium 4.5 mmol/L (3.5-5.1); Sodium 137 mmol/L (136-145)
== END 2020-03-02 02:23 ==
PROVIDERS: PCP Family Medicine; Visit Provider Nurse Practitioner Family
DX: I10 Essential (primary) hypertension (principal)
CPT/HCPCS: 36415; 80048

== ENCOUNTER 2020-03-09 00:17 | Outpatient (CLI) | payer OTHER, SELFPAY ==
--- NOTE | 2020-03-09 06:30 | DI.MAMMO_ITS ---
EXAM: MAMMO SCREENING CLINICAL HISTORY: screening, Z12.39 TECHNIQUE: Mammograms were interpreted according to the usual protocol including computer analysis w [employer] 3D CAD system, tomosynthesis and C-view imaging. COMPARISON: 2002 through 2016 FINDINGS: The breasts are composed of scattered fibroglandular densities, Breast Density category B. No suspicious masses or suspicious microcalcifications are seen. No skin thickening or abnormal axillary lymph nodes are seen. There has been no significant change from prior exams. IMPRESSION: BI-RADS Category 1, negative mammogram. Yearly screening mammography is recommended. Breast Density Category B, scattered fibroglandular densities.
== END 2020-03-09 00:37 ==
PROVIDERS: PCP Family Medicine; Visit Provider Nurse Practitioner Family
DX: Z12.31 Encounter for screening mammogram for malignant neoplasm of breast (principal)
CPT/HCPCS: 77063; 77067

== ENCOUNTER 2021-02-08 01:24 | Outpatient (CLI) | payer OTHER, SELFPAY ==
--- NOTE | 2021-02-08 06:45 | DI.RAD_ITS ---
Exam(s) XR KNEE RT 3V AP,LAT,KOKI EXAM: XR KNEE RT 3V AP,LAT,KOKI CLINICAL HISTORY: rt knee pain x 1 month after kneeling on in yoga,M25.561. TECHNIQUE: 2D digital imaging was performed. COMPARISON: No exams were available for comparison FINDINGS: BONES: No acute fracture is present. No bony destructive lesion is seen. JOINTS: The knee is normally aligned. No joint effusion is seen. There are minimal degenerative day nges at the medial femoral tibial joint. SOFT TISSUE: Normal. IMPRESSION: Minimal degenerative changes. DATA REPOSITORY: RADIATION DOSE DELIVERED:
== END 2021-02-08 01:44 ==
PROVIDERS: PCP Nurse Practitioner Family; Visit Provider Family Medicine
DX: M25.561 Pain in right knee (principal); M25.861 Other specified joint disorders, right knee
CPT/HCPCS: 73562

== ENCOUNTER 2021-08-08 00:36 | Outpatient (CLI) | payer OTHER, SELFPAY ==
--- NOTE | 2021-08-08 07:55 | DI.RAD_ITS ---
Exam(s) XR ANKLE RT COMPLETE EXAM: XR ANKLE RT COMPLETE CLINICAL HISTORY: Right ankle sprain s/p fall, r/o fracture,s93.401a. TECHNIQUE: 2D digital imaging was performed of the right ankle. Three images were obtained. AP, la teral and oblique views were obtained. COMPARISON: No exams were available for comparison FINDINGS: BONES: No acute fracture is present. No bony destructive lesion is seen. There well corticated osseo us densities seen at the tips of both the medial and lateral malleoli which appear old. JOINTS: The ankle mortise is normally aligned. SOFT TISSUE: Normal. IMPRESSION: No acute fracture or dislocation. DATA REPOSITORY: RADIATION DOSE DELIVERED:
== END 2021-08-08 00:56 ==
PROVIDERS: PCP Nurse Practitioner Family; Visit Provider Nurse Practitioner Family
DX: S93.401A Sprain of unspecified ligament of right ankle, initial encounter (principal); W19.XXXA Unspecified fall, initial encounter
CPT/HCPCS: 73610

== ENCOUNTER 2021-10-24 00:16 | Outpatient (CLI) | payer OTHER, SELFPAY ==
--- NOTE | 2021-10-24 06:15 | DI.MRI_ITS ---
Exam(s) MR LOWER JOINT RT WO EXAM: MR LOWER JOINT RT WO CLINICAL HISTORY: Right ankle sprain worsening, r/o tear,s93.401a TECHNIQUE: Multiplanar multisequence MRI was performed without intravenous contrast. COMPARISON: CR XR ANKLE RT COMPLETE from 08/08/2021 FINDINGS: BONES/JOINTS: Edema in the medial malleolus consistent with contusion.. No bone lesions identified. The talar dome is smooth. The ankle mortise is maintained. A small to moderate tibiotalar are joint e ffusion is present. LIGAMENTS: The tibiofibular and calcaneofibular ligaments are intact. The talofibular ligaments are i ntact. Edema around deltoid ligament without definite tear.. The syndesmosis is unremarkable. Sinus tarsi is normal. MUSCULOTENDINOUS STRUCTURES: Achilles tendon: Unremarkable. Plantar fascia: Unremarkable. Anterior Extensor tendons: Unremarkable. Posterior Tibialis: Unremarkable. Flexor Digitorum longus: Unremarkable. Flexor Hallicus longus: Unremarkable. Peroneus longus: Unremarkable. Peroneus brevis:Unremarkable. SOFT TISSUES: Edema in the subcutaneous fat medially. IMPRESSION: Bone contusion of the medial malleolus. Small to moderate-sized joint effusion. Edema around the de ltoid ligament without definite full-thickness tear. DATA REPOSITORY:
== END 2021-10-24 00:36 ==
PROVIDERS: PCP Nurse Practitioner Family; Visit Provider Nurse Practitioner Family
DX: S93.421A Sprain of deltoid ligament of right ankle, initial encounter (principal); M25.471 Effusion, right ankle; S90.01XA Contusion of right ankle, initial encounter; W10.9XXA Fall (on) (from) unspecified stairs and steps, initial encounter
CPT/HCPCS: 73721

== ENCOUNTER 2021-12-13 02:16 | Outpatient (CLI) | payer OTHER, SELFPAY ==
[2021-12-13 11:48] LABS: Anion Gap 9.3 mmol/L (3-11); BUN 17 mg/dL (7-18); CO2 28.7 mmol/L (21.0-32.0); CREATININE 0.7 mg/dL (0.55-1.02); Calcium 9.4 mg/dL (8.5-10.1); Chloride 102 mmol/L (98-107); Glucose 91 mg/dL (74-106); Potassium 4.3 mmol/L (3.5-5.1); Sodium 140 mmol/L (136-145)
== END 2021-12-13 02:17 | disposition home or self-care (01) ==
LOC: LBO 02:16
PROVIDERS: PCP Nurse Practitioner Family; Visit Provider Nurse Practitioner Family
DX: I10 Essential (primary) hypertension (principal)
CPT/HCPCS: 36415; 80048

== ENCOUNTER 2022-05-08 15:45 | Outpatient (REF) | payer OTHER, SELFPAY ==
--- NOTE | 2022-05-08 14:30 | PAPFT_PTH ---
PATIENT: Brandy Camargo LOC: [facility] U#:[id number] AGE/SX: 62/F ROOM: RE05/08/[address]: BENITO Emerson : 1960 BED: DIS: 05/08/2022 SPEC #: [id number] RECD: 05/09/22 12:35 STATUS: NELY REVania #: [id number] LAMAR: 05/08/22 14:[address]: Mini Hung DEPT: [facility] Cytology RECD BY: Shirley Medina Tissues: 1 - CX/ENDOCX FOR PAP SMEARS Procedures: PAP THIN PREP/UVM Screening HPV DNA PROBE Comments: [id number]
== END 2022-05-08 15:46 | disposition home or self-care (01) ==
LOC: LBN 15:45
PROVIDERS: PCP Nurse Practitioner Family; Visit Provider Nurse Practitioner Family
DX: Z12.4 Encounter for screening for malignant neoplasm of cervix (principal); Z11.51 Encounter for screening for human papillomavirus (HPV)
CPT/HCPCS: 88142; 87624

== ENCOUNTER → 2022-05-21 00:50 | Outpatient (CLI) | payer OTHER, SELFPAY ==
--- NOTE | 2022-05-21 06:45 | DI.US_ITS ---
APPROVED REPORT EXAM: Comprehensive 2D, Doppler, and color-flow Echocardiogram Patient Location: Out-Patient Maintenance Electrician: Kate Hutchinson RDCS (AE) Indications: Aortic regurgitation, A Fib Other Information Study Quality: Adequate Conclusion Normal left ventricular wall thickness and chamber size. Estimated ejection fraction is 55 to 60%. There are no segmental wall motion abnormalities Normal right ventricular size and systolic function The left atrium is mildly dilated. The right atrium is borderline dilated Mild aortic valve sclerosis. The aortic valve is trileaflet. There is mild to moderate aortic regur gitation Normal mitral valve with mild regurgitation Normal tricuspid valve with moderate regurgitation. Estimated right ventricular systolic pressure is 24 mmHg Mildly dilated ascending aorta measuring 3.63 cm Wall motion Left Ventricle The left ventricle is normal size. The left ventricular systolic function is normal. The left ventric ular ejection fraction is within the normal range. There is normal left ventricular wall thickness. T here is normal LV segmental wall motion. There is no ventricular septal defect visualized. LVEF is 57 %. Right Ventricle The right ventricle is normal size. The right ventricular systolic function is normal. The RVSP is 24 .1mmHg. Atria Left atrium is mildly dilated Right atrium is borderline dilated. The interatrial septum is intact wi th no evidence for an atrial septal defect. Aortic Valve Mild aortic valve sclerosis. Aortic valve is trileaflet. There is no aortic valvular stenosis. Mild t o moderate aortic regurgitation. Mitral Valve The mitral valve is normal in structure. No evidence of mitral valve stenosis. Mild mitral regurgitat ion. Tricuspid Valve The tricuspid valve is normal in structure. There is no tricuspid valve stenosis. Moderate tricuspid regurgitation. Pulmonic Valve The pulmonary valve is normal in structure. There is no pulmonic valvular stenosis. Trace pulmonic re gurgitation. Great Vessels The aortic root is normal in size. The ascending aorta is mildly dilated. Aortic arch is normal in ca liber. IVC is normal in size and collapses >50% with inspiration. Pericardium There is no pericardial effusion. 2D Dimensions IVSD d PLAX 0.99 cm F: 0.6-1.0 LV Vol A2C d MOD 66.2 mL LVPW d PLAX 0.98 cm F: 0.6 - 1.0 LV Vol A4C d MOD 75.6 mL LVID d PLAX 4.15 cm F: 3.8 - 5.2 LA vol/ BSA A2C s A-L 39.8 mL/m2 LVDs 2.80 cm F: 2.2 - 3.5 LA vol/ BSA A4C s A-L 30.6 mL/m2 Ao Root d 2.81 cm F: 2.7 - 3.3 LA Vol/ BSA Biplane s A-L 36.1 mL/m2 RA Area A4C 18.28 cm2 LA Area A4C s MOD 18.05 cm2 RA Vol/ BSA A4C s A-L 28.6 mL/m2 LA Area A2C s MOD 21.32 cm2 Ao Asc Diam d 3.63 cm F: 2.3 - 3.1 LV EF A4C MOD 55.8 % LV EF Teichholz 60.7 % LV EF A2C MOD 58.7 % LVEF (Hernandez's) 57.88 % F: 54 - 74 LV EF Biplane MOD 57.9 % LV Volume 58.04 mL F: 46 - 106 SV 41.63 mL LV Volume Index 35.82 mL/m2 F: 29 - 61 SV Index 25.56 mL/m2 LV Vol Biplane MOD 71.9 mL FS 32.10 % M-Mode TAPSE 1.89 cm (M/F) >1.7 LV Diastology MV E Vmax 0.99 (0.4-1.3 m/s) Aortic Valve LVOT Area 3.31 cm2 AoV Area Vmax 2.50 cm2 LVOT Vmax 0.95 m/s AoV Area/ BSA (Vmax) 1.54 cm2/m2 LVOT Mean Serafin. 0.66 m/s CORRINA Mean Serafin. 2.45 cm2 LVOT Peak Grad 3.6 mmHg CORRINA Mean Serafin. Index 1.50 cm2/m2 LVOT Mean Grad 2.0 mmHg AR DT 1749 msec LVOT VTI 0.189 m AR PHT 507 msec LVOT Diam s 2.05 cm AoV Vmax 1.25 m/s Velocity Ratio 0.76 AoV Mean Serafin. 0.90 m/s AoV Peak Grad 6.3 mmHg LVOT SV 62.50 mL AoV Mean Grad 3.5 mmHg AoV VTI 0.245 m AoV Area VTI 2.55 cm2 AoV Area/ BSA (VTI) 1.57 cm/m2 Mitral Valve MV DT 193 (160-240 msec) MV PHT 56 msec MV Area PHT 3.93 cm2 MV VTI 0.226 m MV Area VTI 2.76 (4.0-6.0 cm2) Pulmonary Valve PV Vmax 0.81 (0.5-1.5 m/s) RVOT Peak Gr. 1.25 mmHg PV Peak Grad 2.6 mmHg RVOT Mean Gr. 0.60 mmHg PV Mean Grad 1.2 mmHg RVOT VTI 0.124 m PV VTI 0.138 m RVOT Vmax 0.56 m/s Tricuspid Valve TR Peak Grad 21.1 mmHg TR Vmax 2.30 m/s RA Pressure 3.00 mmHg RVSP (TR) 24.1 mmHg
== END ==
PROVIDERS: PCP Nurse Practitioner Family; Visit Provider Internal Medicine Cardiovascular Disease
DX: I35.1 Nonrheumatic aortic (valve) insufficiency (principal); I48.91 Unspecified atrial fibrillation
CPT/HCPCS: 93306

== ENCOUNTER → 2022-05-27 01:37 | Outpatient (CLI) | payer OTHER, SELFPAY ==
--- NOTE | 2022-05-27 06:45 | DI.MAMMO_ITS ---
Exam(s) MAMMO SCREENING EXAM: MAMMO SCREENING CLINICAL HISTORY: screening,Z12.39 TECHNIQUE: Mammograms were interpreted according to the usual protocol including computer analysis w [employer] CAD system, tomosynthesis and C-view imaging. COMPARISON: 2013 through 2019 FINDINGS: The breasts are composed of scattered fibroglandular densities, Breast Density category B. No suspicious masses or suspicious microcalcifications are seen. No skin thickening or abnormal axillary lymph nodes are seen. There has been no significant change from prior exams. IMPRESSION: BI-RADS Category 1, Negative mammogram Yearly screening mammography is recommended. Breast Density - Category B, scattered fibroglandular densities. A negative radiographic report should not delay biopsy if a dominant or clinically suspicious mass is present. Up to ten percent of cancers are not identified on mammography. A negative report may reinforce clinical impression. Adenosis and dense breasts may obscure an underlying neoplasm. False positive reports average 6 to 10%. Patient will receive a letter notifying them of these results.
== END ==
PROVIDERS: PCP Nurse Practitioner Family; Visit Provider Nurse Practitioner Family
DX: Z12.31 Encounter for screening mammogram for malignant neoplasm of breast (principal)
CPT/HCPCS: 77063; 77067

== ENCOUNTER 2022-05-27 02:39 | Outpatient (CLI) | payer OTHER, SELFPAY ==
[2022-05-27 12:26] LABS: Abs Immature Grans 0.03 10^3/uL (0.0-0.06); Absolute Basophil Count 0.06 10^3/uL (0.0-0.2); Absolute Eosinophil Count 0.22 10^3/uL (0.0-0.7); Absolute Lymphocyte Count 2.41 10^3/uL (1.2-3.4); Absolute Monocyte Count 0.53 10^3/uL (0.1-0.8); Absolute Neutrophil Count 5.61 10^3/uL (1.2-6.7); Basophils % 0.7; Eosinophils % 2.5; HCT 40.5 % (36.0-46.0); HGB 13.2 g/dL (11.2-15.7); Immature Grans % 0.3; Lymphocytes % 27.2; MCH 31.1 pg (27.0-33.0); MCHC 32.6 % (32.0-36.0); MCV 95 fL (80-95); Neutrophils % 63.3; Platelet Count 254 10^3/uL (130-400); RBC 4.25 10^6/uL (3.93-5.22); RDW 12.4 % (11.7-14.6); RDW-SD 43.2 fL; WBC 8.86 10^3/uL (4.4-10.8)
[2022-05-27 12:46] LABS: ALT 34 U/L (14-59); AST 33 U/L (15-37); Albumin 3.6 g/dL (3.4-5.0); Alkaline Phosphatase 76 U/L (46-116); Anion Gap 8.7 mmol/L (3-11); BUN 17 mg/dL (7-18); Bilirubin, Total 0.3 mg/dL (0.2-1.0); CO2 29.3 mmol/L (21.0-32.0); CREATININE 0.7 mg/dL (0.55-1.02); Calcium 9.2 mg/dL (8.5-10.1); Chloride 100 mmol/L (98-107); Estimated GFR 97.12 (mL/min/1.73m2); Glucose 87 mg/dL (74-106); Potassium 4.2 mmol/L (3.5-5.1); Sodium 138 mmol/L (136-145); Total Protein 7.9 g/dL (6.4-8.2)
== END 2022-05-27 02:40 | disposition home or self-care (01) ==
LOC: LOS 02:39
PROVIDERS: PCP Nurse Practitioner Family; Visit Provider Nurse Practitioner Family
DX: I48.91 Unspecified atrial fibrillation (principal); I10 Essential (primary) hypertension
CPT/HCPCS: 36415; 80053; 85025

== ENCOUNTER 2023-05-21 03:46 | Outpatient (CLI) | payer OTHER, SELFPAY ==
[2023-05-21 09:22] LABS: HCT 41.3 % (36.0-46.0); HGB 14.3 g/dL (11.2-15.7); MCH 31.8 pg (27.0-33.0); MCHC 34.6 % (32.0-36.0); MCV 92 fL (80-95); MPV 10.7 fL (8.0-11.0); Platelet Count 272 10^3/uL (130-400); RBC 4.49 10^6/uL (3.93-5.22); RDW 12.5 % (11.7-14.6); RDW-SD 42.5 fL
[2023-05-21 09:55] LABS: ALT 33 U/L (14-59); AST 27 U/L (15-37); Albumin 3.7 g/dL (3.4-5.0); Alkaline Phosphatase 98 U/L (46-116); Anion Gap 6.8 mmol/L (3-11); BUN 14 mg/dL (7-18); Bilirubin, Total 0.5 mg/dL (0.2-1.0); CO2 28.2 mmol/L (21.0-32.0); CREATININE 0.8 mg/dL (0.55-1.02); Calcium 9.5 mg/dL (8.5-10.1); Chloride 98 mmol/L (98-107); Estimated GFR 82.23 (mL/min/1.73m2); Glucose 106 mg/dL (74-106); Potassium 3.8 mmol/L (3.5-5.1); Sodium 133 mmol/L (136-145); TSH (W/Ref FT4) 0.83 uIU/mL (0.36-3.74); Total Protein 7.9 g/dL (6.4-8.2)
[2023-05-22 13:13] LABS: Hepatitis C Ab w Rflx HCV PCR Negative (Negative)
== END 2023-05-21 03:47 | disposition home or self-care (01) ==
LOC: LBO 03:46
PROVIDERS: PCP Nurse Practitioner Family; Visit Provider Nurse Practitioner Family
DX: Z00.00 Encounter for general adult medical examination without abnormal findings (principal); I10 Essential (primary) hypertension; I48.91 Unspecified atrial fibrillation; N95.1 Menopausal and female climacteric states; Z11.59 Encounter for screening for other viral diseases
CPT/HCPCS: 36415; 80053; 85027; 86803; 84443

== ENCOUNTER 2023-09-15 08:13 | Outpatient (CLI) | payer OTHER, SELFPAY | END 2023-09-15 08:14 | disposition home or self-care (01) | LOC: DI.CARD 08:14 | PROVIDERS: PCP Nurse Practitioner Family; Visit Provider Internal Medicine Interventional Cardiology | DX: I48.91 Unspecified atrial fibrillation (principal) | CPT/HCPCS: 93010 ==

== ENCOUNTER 2023-09-26 10:39 | Outpatient (CLI) | payer OTHER, SELFPAY ==
--- NOTE | 2023-09-26 10:30 | RT.EKG_ITS ---
APPROVED REPORT Exam: Resting ECG Reason for Exam: baseline Patient Location: O HR:103 bpm ECG Measurements Heart Rate 103 [place]IS [place] [id number] P [id number] QRSd 88 QRS -10 QT 315 T -15 QTc 413 Conclusion Atrial fibrillation...V-rate 82-135, irreg A-activity Borderline T abnormalities, inferior leads...T flat/neg, II III aVF I have reviewed and interpreted ECG and agree with software generated interpretation.
== END 2023-09-26 10:40 | disposition home or self-care (01) ==
LOC: DI.CARD 10:39
PROVIDERS: PCP Nurse Practitioner Family; Visit Provider Internal Medicine Interventional Cardiology
DX: I48.91 Unspecified atrial fibrillation (principal)
CPT/HCPCS: 93010

== ENCOUNTER 2023-12-09 04:49 | Outpatient (CLI) | payer OTHER, SELFPAY ==
[2023-12-09 12:32] LABS: HGB 14.6 g/dL (11.2-15.7); MCH 31.1 pg (27.0-33.0); MCHC 33.2 % (32.0-36.0); MCV 94 fL (80-95); MPV 11.4 fL (8.0-11.0); Platelet Count 285 10^3/uL (130-400); RDW 12.9 % (11.7-14.6); RDW-SD 44.4 fL; WBC 8.66 10^3/uL (4.4-10.8)
[2023-12-09 12:58] LABS: ALT 40 U/L (14-59); AST 31 U/L (15-37); Albumin 3.8 g/dL (3.4-5.0); Alkaline Phosphatase 98 U/L (46-116); Anion Gap 8.8 mmol/L (3-11); BUN 17 mg/dL (7-18); Bilirubin, Total 0.3 mg/dL (0.2-1.0); CO2 28.2 mmol/L (21.0-32.0); CREATININE 0.7 mg/dL (0.55-1.02); Calcium 9.4 mg/dL (8.5-10.1); Chloride 105 mmol/L (98-107); Estimated GFR 96.52 (mL/min/1.73m2); Glucose 111 mg/dL (74-106); Sodium 142 mmol/L (136-145); TSH (W/Ref FT4) 0.99 uIU/mL (0.36-3.74); Total Protein 8.3 g/dL (6.4-8.2)
[2023-12-09 13:39] LABS: Absolute Eosinophil Count 0.26 10^3/uL (0.0-0.7); Absolute Lymphocyte Count 2.25 10^3/uL (1.2-3.4); Absolute Monocyte Count 0.61 10^3/uL (0.1-0.8); Absolute Neutrophil Count 5.54 10^3/uL (1.2-6.7); Atypical Lymphocytes % 5; Diff Comment Manual Differential; RBC Morphology Normal
== END 2023-12-09 04:50 | disposition home or self-care (01) ==
PROVIDERS: PCP Nurse Practitioner Family; Visit Provider Nurse Practitioner Family
DX: I48.11 Longstanding persistent atrial fibrillation (principal)
CPT/HCPCS: 36415; 80053; 84443; 85025

== ENCOUNTER → 2023-12-26 00:33 | Outpatient (CLI) | payer OTHER, SELFPAY ==
--- NOTE | 2023-12-26 07:30 | DI.US_ITS ---
APPROVED REPORT EXAM: Comprehensive 2D, Doppler, and color-flow Echocardiogram Patient Location: Out-Patient [employer] Production: Kate Hutchinson RDCS (AE) Indications: Repeat Echo for known aortic regurgitation, Dyspnea on exertion, Atrial fibrillation Other Information Study Quality: Adequate Conclusion Normal left ventricular wall thickness and chamber size. EF is 55%. Wall motion is normal Normal right ventricular size and function Left atrium is moderately to severely dilated. Right atrium is moderately dilated Aortic valve is sclerotic with moderate regurgitation Normal mitral valve with trace to mild regurgitation Normal tricuspid valve with moderate regurgitation. Estimated right ventricular systolic pressure is 24 mmHg Ascending aorta measures 3.58 cm Wall motion Left Ventricle The left ventricle is normal size. The left ventricular systolic function is normal. The left ventric ular ejection fraction is within the normal range. There is normal left ventricular wall thickness. T here is normal LV segmental wall motion. There is no ventricular septal defect visualized. LVEF is 55 %. Right Ventricle The right ventricle is normal size. The right ventricular systolic function is normal. Atria Left atrium is moderate to severely dilated. Right atrium is moderately dilated. The interatrial sept um is intact with no evidence for an atrial septal defect. Aortic Valve The aortic valve is sclerotic Aortic valve is trileaflet. There is no aortic valvular stenosis. Mode rate aortic regurgitation. Mitral Valve The mitral valve is normal in structure. No evidence of mitral valve stenosis. Trace to mild mitral r egurgitation. Tricuspid Valve The tricuspid valve is normal in structure. There is no tricuspid valve stenosis. Moderate tricuspid regurgitation. The RVSP is 24.22 mmHg. Pulmonic Valve The pulmonary valve is normal in structure. There is no pulmonic valvular stenosis. Trace pulmonic re gurgitation. Great Vessels The aortic root is normal in size. The ascending aorta is mildly dilated. Aortic arch is normal in ca liber. IVC is normal in size and collapses >50% with inspiration. Pericardium There is no pericardial effusion. 2D Dimensions IVSD d PLAX 0.89 cm F: 0.6-1.0 Ao Root d 2.86 cm F: 2.7 - 3.3 LVPW d PLAX 0.91 cm F: 0.6 - 1.0 Ao Asc Diam d 3.58 cm F: 2.3 - 3.1 LVID d PLAX 4.03 cm F: 3.8 - 5.2 LVDs 2.89 cm F: 2.2 - 3.5 LV EF Teichholz 55.4 % FS 28.41 % LV EDV (Teich) 71.3 mL LV ESV (Teich) 31.8 mL Auto EF LV EDV A4C 74.4 mL LV EDV A2C 74.5 mL LV EDV BP 75.0 mL LV ESV A4C 35.4 mL LV ESV A2C 35.8 mL LV ESV BP 35.9 mL LVEF(%) A4C 52.4 % LVEF(%) A2C 51.9 % LVEF(%) BP 52.2 % LV SV A4C 39.0 ml LV SV A2C 38.7 ml LV SV BP 39.1 ml LV CO A4C 1.9 L/min LV CO A2C 2.3 L/min LV CO BP 2.1 L/min HR A4C 48.58 BPM HR A2C 60.00 BPM LV EDV Index (BP) LA Volume LA Length A4C 6.4 cm LA Length A2C 6.5 cm LA Area A4C s 24.94 cm2 LA Area A2C s 23.27 cm2 LA Vol A4C A-L 82.87 mL LA Vol A2C A-L 70.93 mL LA Vol Biplane A-L 77.3 mL LA Vol/BSA A4C A-L LA Vol/BSA A2C A-L LA Vol/BSA BP A-L 47.4 mL/m2 LA Vol A4C MOD 78.2 mL LA Vol A2C MOD 68.0 mL LA Vol BP MOD 73.4 mL RA Volume RA Area A4C 15.9 cm2 RA ESV A4C (A-L) 37.5mL RA Vol/BSA A4C A-L RA Length A4C 5.7 cm RA ESV A4C (MOD) 35.8mL LV Diastology MV E' medial 0.071 (>0.07 m/s) MV E Vmax 0.80 (0.4-1.3 m/s) MV E/E' MED 11.17 (<14) MV E' lateral 0.103 (>0.1 m/s) MV E/E' LAT 7.77 (<14) MV E' Average 0.087 m/s MV E/E'(average) 9.16 Aortic Valve AoV Vmax 1.25 m/s LVOT Vmax 0.85 m/s AoV Peak Grad 45.4 mmHg LVOT Peak Grad 2.9 mmHg AoV Area (Vmax) 2.18 cm2 LVOT VTI 0.207 m AoV VTI 0.284 m LVOT Mean Grad 1.4 mmHg AoV Mean Serafin. 0.80 m/s LVOT SV 66.41 mL AoV Mean Grad 3.0 mmHg LVOT Diam s 2.00 cm AoV Area (VTI) 2.34 cm2 AV Regurg Peak Gr. 84.50 mmHg Velocity Ratio 0.68 AR Decel Pierce 1.1m/sec2 AR DT 4256 msec AR PHT 1234 msec AR Vmax 4.60 m/s Mitral Valve MV DT 206 (160-240 msec) MV Vmax TIPS 0.73 m/s MV Mean Grad 0.7 (<2mmHg) MV VTI 0.212 m Pulmonary Valve PV Vmax 0.70 (0.5-1.5 m/s) RVOT Vmax 0.54 m/s PV Peak Grad 2.0 mmHg RVOT Peak Gr. 1.2 mmHg PV Mean Serafin 0.54 m/s RVOT VTI 0.122 m PV Mean Grad 1.2 mmHg RVOT Mean Gr. 0.6 mmHg Tricuspid Valve RA Pressure 3.00 mmHg TR Vmax 2.30 m/s TV S' 0.12 m/s TR Peak Grad 21.2 mmHg RVSP (TR) 24.2 mmHg
== END ==
PROVIDERS: PCP Nurse Practitioner Family; Visit Provider Nurse Practitioner Family
DX: I48.11 Longstanding persistent atrial fibrillation (principal)
CPT/HCPCS: 93306

== ENCOUNTER 2024-04-20 02:00 | Outpatient (CLI) | payer MEDICARE, SELFPAY ==
[2024-04-20 18:56] LABS: ALT 107 U/L (14-59); AST 57 U/L (15-37); Albumin 4.2 g/dL (3.4-5.0); Alkaline Phosphatase 88 U/L (46-116); Anion Gap 11.2 mmol/L (3-11); BUN 24 mg/dL (7-18); Bilirubin, Total 0.48 mg/dL (0.2-1.0); CO2 27.8 mmol/L (21.0-32.0); CREATININE 0.7 mg/dL (0.55-1.02); Calcium 9.5 mg/dL (8.5-10.1); Calculated LDL 87 mg/dL (<100); Chloride 103 mmol/L (98-107); Cholesterol 188 mg/dL (<200); Estimated GFR 95.92 (mL/min/1.73m2); Glucose 97 mg/dL (74-106); HDL Cholesterol 58 mg/dL (40-60); Potassium 3.8 mmol/L (3.5-5.1); Sodium 142 mmol/L (136-145); Total Protein 8.4 g/dL (6.4-8.2); Triglyceride 215 mg/dL (<150)
[2024-04-20 23:20] LABS: HIV-1/2 Ag & Ab Screen Negative (Negative)
[2024-04-20 23:23] LABS: HBs Antibody, Quant <3.1 mIU/mL (See Note); Hep B Surface Ab Negative (See Note); Hepatitis B Core Antibody Negative (Negative); Hepatitis B Surface Antigen Negative (Negative)
== END 2024-04-20 02:01 | disposition home or self-care (01) ==
LOC: LBO 02:00
PROVIDERS: PCP Nurse Practitioner Family; Visit Provider Nurse Practitioner Family
DX: N95.1 Menopausal and female climacteric states (principal); Z11.59 Encounter for screening for other viral diseases; I10 Essential (primary) hypertension; I48.11 Longstanding persistent atrial fibrillation; Z11.4 Encounter for screening for human immunodeficiency virus [HIV]
CPT/HCPCS: 36415; 80053; 80061; 86704; 86706; 87340; 87389

== ENCOUNTER → 2024-04-30 09:30 | Outpatient (BNVA) | payer MEDICARE, SELFPAY | PROVIDERS: PCP Nurse Practitioner Family; Visit Provider Internal Medicine Cardiovascular Disease | DX: I48.11 Longstanding persistent atrial fibrillation (principal); I10 Essential (primary) hypertension | CPT/HCPCS: 99213 ==

== ENCOUNTER 2024-05-07 01:22 | Outpatient (CLI) | payer MEDICARE, SELFPAY ==
[2024-05-07 12:51] LABS: ALT 72 U/L (14-59); AST 56 U/L (15-37); Albumin 3.9 g/dL (3.4-5.0); Alkaline Phosphatase 87 U/L (46-116); Anion Gap 7.5 mmol/L (3-11); BUN 18 mg/dL (7-18); Bilirubin, Direct 0.1 mg/dL (0.0-0.2); Bilirubin, Total 0.49 mg/dL (0.2-1.0); CO2 27.5 mmol/L (21.0-32.0); CREATININE 0.9 mg/dL (0.55-1.02); Calcium 9.6 mg/dL (8.5-10.1); Chloride 101 mmol/L (98-107); Estimated GFR 70.95 (mL/min/1.73m2); Glucose 92 mg/dL (74-106); Potassium 4.1 mmol/L (3.5-5.1); Sodium 136 mmol/L (136-145)
== END 2024-05-07 01:23 | disposition home or self-care (01) ==
LOC: LBO 01:22
PROVIDERS: PCP Nurse Practitioner Family; Visit Provider Nurse Practitioner Family
DX: N95.1 Menopausal and female climacteric states (principal); R79.89 Other specified abnormal findings of blood chemistry
CPT/HCPCS: 36415; 80053; 80076

== ENCOUNTER 2024-09-08 03:56 | Outpatient (CLI) | payer MEDICARE, SELFPAY ==
[2024-09-08 15:50] LABS: ALT 122 U/L (14-59); AST 58 U/L (15-37); Albumin 3.8 g/dL (3.4-5.0); Alkaline Phosphatase 118 U/L (46-116); Anion Gap 5.7 mmol/L (3-11); BUN 21 mg/dL (7-18); Bilirubin, Direct 0.1 mg/dL (0.0-0.2); CO2 31.3 mmol/L (21.0-32.0); CREATININE 0.9 mg/dL (0.55-1.02); Calcium 9.2 mg/dL (8.5-10.1); Chloride 104 mmol/L (98-107); Estimated GFR 70.95 (mL/min/1.73m2); Glucose 89 mg/dL (74-106); Sodium 141 mmol/L (136-145); Total Protein 8.1 g/dL (6.4-8.2)
== END 2024-09-08 03:57 | disposition home or self-care (01) ==
PROVIDERS: PCP Nurse Practitioner Family; Visit Provider Nurse Practitioner Family
DX: N95.1 Menopausal and female climacteric states (principal)
CPT/HCPCS: 36415; 80053; 80076

== ENCOUNTER 2024-09-13 02:03 | Outpatient (CLI) | payer MEDICARE, SELFPAY ==
--- NOTE | 2024-09-13 06:30 | DI.US_ITS ---
Exam(s) US ABDOMEN EXAM: US ABDOMEN CLINICAL HISTORY: elevated LFTs,R79.89 TECHNIQUE: Ultrasound abdomen performed using standard protocol. COMPARISON: No exams were available for comparison FINDINGS: LIVER: Normal size and echogenicity. No focal liver lesions are seen. GALLBLADDER: Status post cholecystectomy. BRIONES'S SIGN: Negative. BILIARY SYSTEM: No intrahepatic or extrahepatic biliary ductal dilation. KIDNEYS: Kidneys are symmetric in size. No evidence of renal calculi. No evidence of hydronephrosis. No renal mass or cyst identified. PANCREAS: Normal where visualized. SPLEEN: Not enlarged. ABDOMINAL AORTA AND IVC: Visualized portions normal caliber. ASCITES: None seen. IMPRESSION: Status post cholecystectomy, otherwise normal sonographic appearance of the upper abdomen. DATA REPOSITORY:
== END 2024-09-13 02:23 ==
LOC: DI 02:03
PROVIDERS: PCP Nurse Practitioner Family; Visit Provider Nurse Practitioner Family
DX: R79.89 Other specified abnormal findings of blood chemistry (principal)
CPT/HCPCS: 76700

== ENCOUNTER 2024-09-16 00:12 | Outpatient (CLI) | payer MEDICARE, SELFPAY ==
--- NOTE | 2024-09-16 08:00 | DI.MAMMO_ITS ---
Exam(s) MAMMO SCREENING EXAM: MAMMO SCREENING CLINICAL HISTORY: screening,z12.39 TECHNIQUE: Mammograms were interpreted according to the usual protocol including computer analysis w [employer] CAD system, tomosynthesis and C-view imaging. COMPARISON: 2014 through 2021 FINDINGS: The breasts are composed of scattered fibroglandular densities, Breast Density category B. No suspicious masses or suspicious microcalcifications are seen. No skin thickening or abnormal axillary lymph nodes are seen. There has been no significant change from prior exams. IMPRESSION: BI-RADS Category 1, Negative mammogram Yearly screening mammography is recommended. Breast Density - Category B, scattered fibroglandular densities. A negative radiographic report should not delay biopsy if a dominant or clinically suspicious mass is present. Up to ten percent of cancers are not identified on mammography. A negative report may reinforce clinical impression. Adenosis and dense breasts may obscure an underlying neoplasm. False positive reports average 6 to 10%. Patient will receive a letter notifying them of these results.
--- NOTE | 2024-09-16 08:01 | DI.DEXA_ITS ---
Exam(s) XR DEXA BONE DENSITY W/WO JOSE ALBERTO EXAM: XR DEXA BONE DENSITY W/WO JOSE ALBERTO CLINICAL HISTORY: osteoporosis screening in postmenopausal status z78.0 TECHNIQUE: [employer] C densitometer analysis of left hip, lumbar spine and right forearm. La teral survey image of the thoracic and lumbar spine. COMPARISON: MR MRI - LUMBAR SPINE WO CONTRAST from 08/11/2015 FINDINGS: Lateral view of the thoracic and lumbar spine shows no evidence of compression fractures. Bone mineral density measurements of the lumbar spine correspond to a total T-score of -1.0, at the the lower limit of normal. Bone mineral density measurements of the left hip correspond to a total T-score of -1.9. The femora l neck T-score is -2.2, in the osteopenic range. Theright forearm bone mineral density measurements correspond to a T-score of the distal 3rd of -1.0 , at the lower limit of normal.. IMPRESSION: Osteopenia of the hip. Borderline osteopenia of the forearm and spine.
== END 2024-09-16 00:32 ==
LOC: DI 00:12
PROVIDERS: PCP Nurse Practitioner Family; Visit Provider Nurse Practitioner Family
DX: Z13.820 Encounter for screening for osteoporosis (principal); Z78.0 Asymptomatic menopausal state; M81.0 Age-related osteoporosis without current pathological fracture; Z12.31 Encounter for screening mammogram for malignant neoplasm of breast
CPT/HCPCS: 77063; 77067; 77080

== ENCOUNTER 2024-11-01 02:12 | Outpatient (CLI) | payer MEDICARE, SELFPAY ==
[2024-11-01 12:19] LABS: ALT 69 U/L (14-59); AST 36 U/L (15-37); Albumin 3.7 g/dL (3.4-5.0); Alkaline Phosphatase 104 U/L (46-116); Bilirubin, Direct 0.1 mg/dL (0.0-0.2); Bilirubin, Total 0.29 mg/dL (0.2-1.0)
[2024-11-01 14:22] LABS: ALT 67 U/L (14-59); AST 37 U/L (15-37); Albumin 3.6 g/dL (3.4-5.0); Alkaline Phosphatase 107 U/L (46-116); Anion Gap 7.7 mmol/L (3-11); BUN 17 mg/dL (7-18); Bilirubin, Total 0.28 mg/dL (0.2-1.0); CO2 28.3 mmol/L (21.0-32.0); CREATININE 0.6 mg/dL (0.55-1.02); Calcium 9.6 mg/dL (8.5-10.1); Chloride 105 mmol/L (98-107); Estimated GFR 99.55 (mL/min/1.73m2); Glucose 102 mg/dL (74-106); Potassium 4.3 mmol/L (3.5-5.1); Sodium 141 mmol/L (136-145); Total Protein 8.1 g/dL (6.4-8.2)
== END 2024-11-01 02:13 | disposition home or self-care (01) ==
PROVIDERS: PCP Nurse Practitioner Family; Visit Provider Obstetrics & Gynecology
DX: R79.89 Other specified abnormal findings of blood chemistry (principal)
CPT/HCPCS: 36415; 80053; 80076

== ENCOUNTER 2025-01-19 03:01 | Outpatient (CLI) | payer MEDICARE, SELFPAY ==
[2025-01-19 10:44] LABS: ALT 61 U/L (14-59); AST 37 U/L (15-37); Albumin 3.8 g/dL (3.4-5.0); Alkaline Phosphatase 101 U/L (46-116); Anion Gap 7.5 mmol/L (3-11); BUN 14 mg/dL (7-18); Bilirubin, Total 0.5 mg/dL (0.2-1.0); CO2 30.5 mmol/L (21.0-32.0); CREATININE 0.8 mg/dL (0.55-1.02); Calcium 9.1 mg/dL (8.5-10.1); Chloride 101 mmol/L (98-107); Estimated GFR 81.72 (mL/min/1.73m2); Glucose 113 mg/dL (74-106); Potassium 3.6 mmol/L (3.5-5.1); Sodium 139 mmol/L (136-145); Total Protein 8.1 g/dL (6.4-8.2)
== END 2025-01-19 03:02 | disposition home or self-care (01) ==
PROVIDERS: PCP Nurse Practitioner Family; Visit Provider Obstetrics & Gynecology
DX: R79.89 Other specified abnormal findings of blood chemistry (principal)
CPT/HCPCS: 36415; 80053

== ENCOUNTER 2025-04-29 09:28 | Outpatient (CLI) | payer MEDICARE, SELFPAY ==
--- NOTE | 2025-04-29 09:30 | RT.EKG_ITS ---
APPROVED REPORT Exam: Resting ECG Reason for Exam: afib Patient Location: O HR:67 bpm ECG Measurements Heart Rate 67 AXIS ID [id number] P [id number] QRSd 106 QRS 2 QT 398 T 4 QTc 420 Conclusion Atrial fibrillation...V-rate 63- 74, irreg A-activity Low voltage, extremity and precordial leads...extremity<0.5mV, precordial<1.0mV
== END 2025-04-29 09:29 | disposition home or self-care (01) ==
LOC: DI.CARD 09:31
PROVIDERS: PCP Nurse Practitioner Family; Visit Provider Internal Medicine Cardiovascular Disease
DX: I48.11 Longstanding persistent atrial fibrillation (principal)
CPT/HCPCS: 93010

== ENCOUNTER → 2025-04-29 09:28 | Outpatient (BNVA) | payer MEDICARE, SELFPAY | PROVIDERS: PCP Nurse Practitioner Family; Referring Provider Nurse Practitioner Family; Visit Provider Internal Medicine Cardiovascular Disease | DX: I48.11 Longstanding persistent atrial fibrillation (principal); I35.1 Nonrheumatic aortic (valve) insufficiency; Z79.01 Long term (current) use of anticoagulants | CPT/HCPCS: 99214; 93005 ==

== ENCOUNTER 2025-06-15 00:04 | Outpatient (CLI) | payer MEDICARE, SELFPAY ==
[2025-06-15 11:27] LABS: ALT 40 U/L (14-59); AST 29 U/L (15-37); Albumin 3.7 g/dL (3.4-5.0); Alkaline Phosphatase 100 U/L (46-116); Anion Gap 6.9 mmol/L (3-11); BUN 13 mg/dL (7-18); Bilirubin, Total 0.4 mg/dL (0.2-1.0); CO2 29.1 mmol/L (21.0-32.0); Calcium 9.1 mg/dL (8.5-10.1); Chloride 102 mmol/L (98-107); Estimated GFR 70.51 (mL/min/1.73m2); Glucose 95 mg/dL (74-106); Potassium 4.2 mmol/L (3.5-5.1); Sodium 138 mmol/L (136-145); Total Protein 7.8 g/dL (6.4-8.2)
== END 2025-06-15 00:05 | disposition home or self-care (01) ==
PROVIDERS: PCP Nurse Practitioner Family; Visit Provider Obstetrics & Gynecology
DX: N95.1 Menopausal and female climacteric states (principal)
CPT/HCPCS: 36415; 80053